=== PATIENT | male | born 2000 | race Caucasian/White ===

== ENCOUNTER 2024-11-10 21:57 | Emergency (ER) | payer MEDICAID, SELFPAY ==
[2024-11-10 22:01] VITALS: BP 145/71; PULSE 80; RESP 18; TEMP 36.3; O2SAT 97
--- NOTE | 2024-11-10 22:42 | ED.GENADUL_ITS ---
Discharge Plan Disposition Patient Disposition: Home Condition: Stable Discharge Details Clinical Impression: Dental infection Primary Care Provider: None,None ED Provider: Santana Fernandez Home Meds and New Rx's Prescriptions: New ketorolac 10 mg tablet 10 mg PO QID 5 Days Qty: 19 0RF Rx Instructions: maximum total duration of 5 days from all oral, intranasal, or parenteral formulations Discharge Instructions Instructions: Ketorolac (Systemic), Dental Pain ED Additional Instructions: You were seen in the emergency department for your ongoing dental infection and pain, there is no visible gingival abscess you have no signs of trismus or deep space infection. As we discussed you need to be taking 1000 mg of Tylenol every 6 hours, for the next 5 days please take the tablets of Toradol senior living between Tylenol doses also on a 6-hour schedule, once you run out of the switch back to 400 mg of ibuprofen in the same fashion. Please continue the antibiotics research homeopathic remedies like close and teabags to help relieve the pain. Please return for any reduced range of motion of jaw, vocal changes, neck swelling, inability to swallow. Discharge Data Discharge Date/Time-TO BE ENTERED AT DEPARTURE: 11/10/24 22:55 HPI General Date/Time Provider Initiated Documentation: 11/10/24 22:04 . HPI Narrative: 24 year-old male presents to ED today by POV/ambulating with a chief complaint of R lower molar dental pain with onset for the past few days- started antibiotics yesterday. Quality described as throbbing, no radiation to fever, trismus, vocal changes, vomiting, neck swelling, fever. Severity is described as moderate. Palliating factors include Tylenol and ibuprofen in subtherapeutic manner. Provoking factors include nothing specific. Events leading up to the incident/Associated Symptoms: Patient is working on dental follow-up. Patient not anticoagulated. Related Data Home Medications ?Medication ?Instructions ?Recorded ?Confirmed ketorolac 10 mg tablet 10 mg PO QID 5 days #19 tabs 11/10/24 Previous Rx's ?Medication ?Instructions ?Recorded ketorolac 10 mg tablet 10 mg PO QID 5 days #19 tabs 11/10/24 Allergies Allergy/AdvReac Type Severity Reaction Status Date / Time No Known Allergies Allergy Unverified 11/10/24 22:05 General Stated Complaint: DentalOral CLARA: 3 Review of Systems All systems reviewed & are unremarkable except as noted in HPI and below Exam Narrative Exam Narrative: GENERAL APPEARANCE: Well-nourished, non-toxic, awake and alert, atraumatic, no acute distress. SKIN: Warm, pink, dry, intact, without rashes/lesions/ulcerations. HEAD: Normocephalic, atraumatic, normal hair distribution for gender/age. EYES: Normal conjunctiva, no exudates on lids/lashes. ENT: Nares patent, no circumoral cyanosis, no facial swelling, no trismus, no vocal changes, no drooling, no visible / palpable ginigval abscess R lower jaw NECK: Supple, trachea midline, painless cervical ROM. LUNGS/CHEST: Non-labored respirations, normal A/P diameter, symmetrical expansion, no chest wall deformity HEART (CV/PV): No peripheral edema, no JVD. ABDOMEN: Soft, non-distended, no guarding. MSK: Normal ROM, no swelling/deformity to bilateral UEs or LEs, moving all extremities without weakness, no cyanosis, spine midline without tenderness, normal curvature. NEURO: Mental Status AAOx4 - alert to person, place, time, events No facial droop, no forehead involvement. Motor: No focal weakness - strength 5/5 in bilateral UEs and LEs, proximal and distal, symmetric. Sensory: sensation intact to light touch globally. Gait normal: patient ambulated without ataxia into ED room. PSYCH: euthymic, cooperative, pleasant, appropriate speech Course Vital Signs Vital signs: Vital Signs Temperature 36.3 C L 11/10/24 22:01 Pulse 80 11/10/24 22:01 Respiratory Rate 18 11/10/24 22:01 Blood Pressure 145/71 H 11/10/24 22:01 Pulse Oximetry 97 11/10/24 22:01 Temperature 36.3 C L 11/10/24 22:01 Temperature Source Tympanic 11/10/24 22:01 Pulse 80 11/10/24 22:01 Respiratory Rate 18 11/10/24 22:01 Blood Pressure 145/71 H 11/10/24 22:01 Pulse Oximetry 97 11/10/24 22:01 Oxygen Delivery Method Room Air 11/10/24 22:01 Oxygen Flow Rate 0 11/10/24 22:01 Medical Decision Making This dictation utilizes [id number] dictation software and may contain unedited grammatical errors. 24 year-old male presents to ED today by POV/ambulating with a chief complaint of R lower molar dental pain with onset for the past few days- started antibiotics yesterday. Quality described as throbbing, no radiation to fever, trismus, vocal changes, vomiting, neck swelling, fever. Severity is described as moderate. Palliating factors include Tylenol and ibuprofen in subtherapeutic manner. Provoking factors include nothing specific. Events leading up to the incident/Associated Symptoms: Patient is working on dental follow-up. Patients' medical history: Noncontributory. Family and social history: Noncontributory. Pertinent exam findings / vital signs include no visible gingival abscess, no trismus, no vocal changes, uvula midline, no Mazin's angina. Differential / pathologies of concern include dental infection, dental pain. Diagnostic studies of: - None. Interventions of: - Added ketorolac for patient's pain. ED Course/Assessment/Plan: 24-year-old male presents with dental pain on antibiotics, he is in process of finding dental follow-up, states he is having increased swelling but there is no visible abscess, he has no signs of deep space infection I counseled him on therapeutic dosing regimen of Tylenol and NSAID with Rx for Toradol, continue salt water gargles and research homeopathic's like clove for dental pain. Findings not consistent with [employer], angioedema or Mazin's angina. Disposition of dental infection. Patient verbalized understanding of the plan and return to ED criteria and engaged in shared decision making. Medical Records Medical records reviewed: Yes I reviewed the patient's medical records. PFSH All Active Problems (Updated 11/10/24 @ 22:44 by ANNITA Burris) Dental infection (Acute) Social History Smoking/Tobacco Use Status: Current every day Smoking risk assessment performed?: Yes Alcohol Intake: current Alcohol Intake frequency: a few times a month Substance use type: marijuana PAWSS Have you Been Recently Intoxicated or Drunk Within the Last 30 days?: No Have you Ever Experienced Previous Episodes of Alcohol Withdrawal?: No Have you ever Experienced Withdrawal Seizures?: No Have you ever Experienced Delirium Tremens(DT)s?: No Have you ever undergone Alcohol Rehabilitation Treatment (i.e, inpt ot outpatient treatment programs)?: No Have you ever Experienced Blackouts?: No Have you ever Combined Alcohol with other Downers within the last 90 days?: No Have you ever Combined Alcohol with any other Substance of Abuse during the last 90 days?: No Positive Blood Alcohol level on Presentation? [PCS.BAL]: No Evidence of Increased Autonomic Activity (i.e. HR>120, tremor, sweating, agitation, nausea)?: No Result: 0
[2024-11-10] MEDS: Acetaminophen 500 MG TAB 1000 MG PO (22:50)
[2024-11-10] MEDS: Ketorolac 10 MG TAB PO (22:50)
[2024-11-10 22:53] VITALS: PULSE 74; RESP 18; O2SAT 98
== END 2024-11-10 22:55 | disposition home or self-care (01) ==
PROVIDERS: Emergency Provider Physician Assistant
DX: K04.7 Periapical abscess without sinus (principal); F17.200 Nicotine dependence, unspecified, uncomplicated
CPT/HCPCS: 99283